=== PATIENT | male | born 1965 | race Caucasian/White ===

== ENCOUNTER 2022-09-26 05:04 | Emergency (ER) | payer OTHER ==
[~2022-09-26] VITALS: Ht 180 cm; Wt 117.0 kg
[2022-09-26 05:19] VITALS: BP 134/89
[2022-09-26] MEDS ORDERED: FAMOTIDINE 20MG/2ML IV (PEPCID) IV STA (05:25)
[2022-09-26] MEDS ORDERED: methylPREDNISolone 125 MG (Solu-MEDROL) VIAL IV STA (05:25)
[2022-09-26] MEDS ORDERED: diphenhydrAMINE 50 MG/ML INJ (BENADRYL) IV STA (05:25)
--- NOTE | 2022-09-26 05:28 | ED General ---
General Chief Complaint: Allergic Reaction Stated Complaint: ALLERGIC RXN Nursing Triage Note: patient reports facial swelling yesterday late afternoon, with hives in face/jaw/ ear and throat tightness "few days" Source of Information: Patient History of Present Illness Date Seen by Provider: Sep 26, 2022 Time Seen by Provider: 05:18 Initial Comments PT ARRIVES VIA POV FROM HOME PT STATES HE THINKS HE IS HAVING AN ALLERGIC REACTION TO SOMETHING HE STATES FOR THE LAST FEW DAYS HIS THROAT HAS FELT A LITTLE TIGHT YESTERDAY AFTERNOON, HE NOTICED THAT HIS FACE WAS SWOLLEN, AND HE BEGAN TO HAVE HIVES ALL OVER HIS FACE, EARS, JAWS--ONLY MILDLY ITCHY NO DIFFICULTY BREATHING OR SWALLOWING NO DIZZINESS OR SYNCOPE NO GI SYMPTOMS NO OTHER PARTS OF BODY ARE AFFECTED HE HAS NOT TAKEN ANYTHING FOR SYMPTOMS PT HAS BEEN HAVING SYMPTOMS OF SINUS INFECTION FOR THE LAST 3 WEEKS HE WENT TO [facility] ON 09/17/22, AND RECEIVED RX'S FOR PREDNISONE, TESSALON, AUGMENTIN, FLONASE. HE FINISHED THESE MEDICATIONS "A FEW DAYS AGO" HE DID NOT HAVE THESE SYMPTOMS WHILE TAKING THE MEDICATIONS. HE HAS NOT HAD SYMPTOMS LIKE THIS BEFORE HE DOES NOT TAKE ANY DAILY MEDICATIONS NO NEW FOODS PT JUST RECENTLY MOVED BACK TO THIS AREA, AND HAS NOT ESTABLISHED WITH LOCAL DR YET HE GREW UP HERE, BUT MOVED AWAY AFTER COLLEGE. Allergies and Home Medications Allergies Coded Allergies: No Known Allergies (Unverified Allergy, Mild, 09/26/22) Patient Home Medication List Home Medication List Reviewed: Yes Famotidine (Pepcid) 40 Mg Tablet, 40 MG PO DAILY Prescribed by: MARAH EDGAR on 09/26/22623 Prednisone (Prednisone) 20 Mg Tab, 40 MG PO DAILY Prescribed by: MARAH EDGAR on 09/26/22623 Review of Systems Review of Systems Constitutional: no symptoms reported; No chills, No diaphoresis, No dizziness, No fever EENTM: see HPI Respiratory: no symptoms reported Cardiovascular: no symptoms reported Gastrointestinal: no symptoms reported Genitourinary: no symptoms reported Musculoskeletal: no symptoms reported Skin: see HPI Psychiatric/Neurological: No Symptoms Reported Hematologic/Lymphatic: No Symptoms Reported Immunological/Allergic: no symptoms reported Past Nnwxiwe-Iytaro-Cgcjpv Hx Patient Social History Tobacco Use?: No Use of E-Cig and/or Vaping dev: No Substance use?: No Alcohol Use?: Yes Alcohol Frequency: Rarely Immunizations Up To Date First/Initial COVID19 Vaccinat: 2020 Second COVID19 Vaccination Terrance: 2020 Third COVID19 Vaccination Date: 2021 Past Medical History Surgery/Hospitalization HX: ortho surgery Surgeries: Yes (BILATERAL BICEPS TENDON RUPTURE REPAIRS) Orthopedic Respiratory: No Cardiac: No Neurological: No Genitourinary: No Gastrointestinal: No Musculoskeletal: Yes (BILATERAL BICEPS TENDON RUPTURES/REPAIRS DUE TO WEIGHTLIFTING) Endocrine: No HEENT: No Cancer: No Physical Exam Vital Signs Vital Signs - First Documented 09/26/22 05:19 Temp 36.2 Pulse 71 Resp 18 B/P (MAP) 134/89 (104) Pulse Ox 97 O2 Delivery Room Air Capillary Refill : Less Than 3 Seconds Height, Weight, BMI Height: '" Weight: lbs. oz. kg; 36.00 BMI Method: General Appearance: No Apparent Distress, WD/WN HEENT: PERRL/EOMI, Pharynx Normal, Other (NO SWELLING OF LIPS OR ORAL MUCOSA OR UVULA OR TONGUE. NORMAL VOICE. NO PROBLEMS HANDLING SECRETIONS. ) Neck: Full Range of Motion, Normal Inspection, Non Tender, Supple Respiratory: Normal Breath Sounds, No Accessory Muscle Use, No Respiratory Distress Cardiovascular: Regular Rate, Rhythm, No Murmur Back: Normal Inspection Extremity: Normal Inspection, No Pedal Edema Neurologic/Psychiatric: Alert, Oriented x3, No Motor/Sensory Deficits, Normal Mood/Affect, cork insulator II-XII Norm as Tested Skin: Normal Color, Warm/Dry, Rash (DIFFUSE ERYTHEMA TO ENTIRE FACE, BILATERAL EARS, WITH SLIGHT SWELLING TO FACE AND EARS, AND PATCHY URTICARIAL WHEALS TO FACE, EARS, NECK. ) Progress/Results/Core Measures Suspected Sepsis SIRS Temperature: Pulse: 71 Respiratory Rate: 18 Blood Pressure 134 /89 Mean: 104 Results/Orders My Orders Orders - MARAH EDGAR DO Ed Iv/Invasive Line Start (09/26/22 05:25) Monitor-Rhythm Ecg Trace Only (09/26/22 05:25) Famotidine Injection (Pepcid Injection) (09/26/22 05:25) Diphenhydramine Injection (Benadryl Inje (09/26/22 05:25) Methylprednisolone Sod Succ (Solu-Medrol (09/26/22 05:25) Vital Signs/I&O 09/26/22 05:19 Temp 36.2 Pulse 71 Resp 18 B/P (MAP) 134/89 (104) Pulse Ox 97 O2 Delivery Room Air Capillary Refill : Less Than 3 Seconds Blood Pressure Mean: 104 Progress Note : Progress Note GIVEN: -BENADRYL -SOLU-MEDROL -PEPCID SYMPTOMS IMPROVING WITH THE ABOVE--SKIN IS MUCH LESS RED, STILL HAS RESIDUAL URTICARIA, SWELLING HAS DECREASED. NOT ITCHING. THROAT NO LONGER FEELS TIGHT. VITALS STABLE DISCUSSED ANTICIPATED COURSE, SYMPTOMATIC TREATMENT, MEDICATIONS, NEED FOR FOLLOW UP AND RETURN PRECAUTIONS NO PRIOR VISITS HERE Departure Impression Primary Impression: ALLERGIC REACTION UNKNOWN CAUSE Disposition: HOME, SELF-CARE Condition: Improved Departure-Patient Inst. Decision time for Depature: 06:22 Referrals: NO,LOCAL PHYSICIAN (PCP/Family) Primary Care Physician Patient Instructions: Allergic Reaction ED Add. Discharge Instructions: LOTS OF LIQUIDS AVOID ANY NEW FOODS, DRINKS OR PRODUCTS BENADRYL 50 MG EVERY 4 HOURS NEEDED FOR RASH OR ITCHING RETURN TO ER IF SYMPTOMS WORSEN All discharge instructions reviewed with patient and/or family. Voiced understanding. Scripts Famotidine (Pepcid) 40 Mg Tablet 40 MG PO DAILY, #10 TAB Prov: MARAH EDGAR DO 09/26/22 Prednisone (Prednisone) 20 Mg Tab 40 MG PO DAILY, #6 TAB 0 Refills Prov: MARAH EDGAR DO 09/26/22 MARAH EDGAR DO Sep 26, 2022 05:28
[2022-09-26] MEDS ORDERED: PRD20T PO (06:24)
[2022-09-26] MEDS ORDERED: FAMO40TA72 PO (06:24)
== END 2022-09-26 06:46 | disposition home or self-care (01) ==
LOC: ER 05:11
DX: L50.0 Allergic urticaria (principal)

== ENCOUNTER 2022-11-23 05:55 | Outpatient (CLI) | payer OTHER ==
[~2022-11-23] VITALS: Ht 180.3 cm; Wt 122.2 kg
[~2022-11-23 05:55] MED LIST: FAMO40TA72 PO; PRD20T PO
[2022-11-23] MEDS ORDERED: DIOS630T PO (09:28)
[2022-11-23] MEDS ORDERED: LACT1CAP62 PO (09:28)
[2022-11-23] MEDS ORDERED: MULT-1136 PO (09:28)
== END 2022-11-23 09:36 | disposition home or self-care (01) ==
LOC: PREOP 05:55
PROVIDERS: ATTEND Surgery
DX: Z01.818 Encounter for other preprocedural examination (principal)

== ENCOUNTER 2022-11-30 12:03 | Day surgery (SDC) | payer OTHER ==
[~2022-11-30] VITALS: Ht 180.3 cm; Wt 122.2 kg
[~2022-11-30 12:03] MED LIST changes: +DIOS630T PO; +LACT1CAP62 PO; +MULT-1136 PO
[2022-11-30] MEDS ORDERED: LACTATED RINGERS 1,000 ML 1,000 ML IV STA (12:06)
[2022-11-30] MEDS ORDERED: LIDOCAINE JELLY 2% 6 ML SYRINGE MM PRN (12:15)
[2022-11-30] MEDS ORDERED: HURRICAINE EXT TUBE (BENZOCAINE) XX PRN (12:15)
[2022-11-30 12:40] VITALS: BP 144/99
--- NOTE | 2022-11-30 13:04 | Progress Note-Pre Operative ---
Pre-Operative Progress Note Date of Available H&P: Nov 30, 2022 Date H&P Reviewed: Nov 30, 2022 Time H&P Reviewed: 13:00 History & Physical: No changes noted Pre-Operative Diagnosis: dysphagia, GERD, hx Darling's MONIE JONES MD Nov 30, 2022 13:04
[2022-11-30] MEDS ORDERED: PANT40TA2 PO (13:05)
--- NOTE | 2022-11-30 13:05 | Discharge Inst-Surgical ---
D/C Lap Instructions-KIDO New, Converted, or Re-Newed RX: RX on Chart Follow Up Activity as tolerated High Fiber Diet 25g or more per day Avoid Alcohol, Caffeine, Spicy [place] and Acid foods. Drink 64 fluid oz or more of fluids per day. Symptoms to Report: Fever over 101 degree F, Nausea/Vomiting If any problems/questions: Contact your physician or go to Emergency Room MONIE JONES MD Nov 30, 2022 13:05
[2022-11-30] MEDS ORDERED: ONDANSETRON 4 MG ORAL DISSOLVE TABLET PO PRN (13:15)
[2022-11-30] MEDS ORDERED: ONDANSETRON INJECTION 4 MG/2 ML (SDV) IVP PRN (13:15)
[2022-11-30] MEDS ORDERED: MIDAZOLAM INJ 2 MG/2 ML VIAL ONE (13:39)
[2022-11-30] MEDS ORDERED: LIDOCAINE JELLY 2% 6 ML SYRINGE ONE (13:43)
[2022-11-30 14:30] VITALS: BP 123/73
[2022-11-30 14:35] VITALS: BP 124/73
--- NOTE | 2022-11-30 14:52 | Anesthesia-General Post-Op ---
MAC Patient Condition Mental Status/LOC: Same as Preop Cardiovascular: Satisfactory Nausea/Vomiting: Absent Respiratory: Satisfactory Pain: Controlled Complications: Absent Post Op Complications Complications None Follow Up Care/Instructions Patient Instructions None needed. Anesthesiology Discharge Order Discharge Order Patient is doing well, no complaints, stable vital signs, no apparent adverse anesthesia problems. No complications reported per nursing. EDWIN MEADE CRNA Nov 30, 2022 14:52
[2022-11-30 15:15] VITALS: BP 126/75
--- NOTE | 2022-11-30 17:49 | Progress Note-Post Operative ---
Post-Operative Progess Note Surgeon (s)/Geological Technician (s) Surgeon MONIE JONES MD Geological Technician: none Pre-Operative Diagnosis dysphagia, GERD, hx Darling's Post-Operative Diagnosis reflux esophagitis(grade C)with clinical Darling's esophagus, small HH(2.5cm), moderate gastritis. Procedure & Operative Findings Date of Procedure 11/30/22 Procedure Performed/Findings EGD with bx. Anesthesia Type mac Estimated Blood Loss Estimated blood loss (mL): minimal Specimens/Packing Specimens Removed ge jxn, antrum MONIE JONES MD Nov 30, 2022 17:49
--- NOTE | 2022-11-30 22:22 | OPERATIVE REPORT ---
DATE OF SERVICE: 11/30/2022 ATTENDING PRIMARY CARE PHYSICIAN: Dr. Marek Carrillo. PREOPERATIVE DIAGNOSES: Gastroesophageal reflux disease, history of Darling's esophagus. POSTOPERATIVE DIAGNOSES: Reflux esophagitis, Deport grade C with clinical Darling's esophagus. Small hiatal hernia approximately 2.5 cm in size, moderate gastritis. PROCEDURE: EGD with biopsy. SURGEON: Monie Jones MD ANESTHESIA: Monitored anesthesia care. ESTIMATED BLOOD LOSS: Minimal. FINDINGS: Reflux esophagitis, Deport grade C with clinical Darling's esophagus. Small hiatal hernia approximately 2.5 cm in size, moderate gastritis. DISPOSITION: The patient tolerated the procedure well. INDICATIONS: The patient is a 57-year-old male referred over to us for surveillance of his Darling's esophagus. He states that he was diagnosed 3 years ago and has had yearly upper endoscopies since that time. He has been found to have Darling's esophagus; however, does not recall any history of identifying any areas of dysplasia within the biopsy specimens. He reports that he also does have some intermittent episodes of reflux with epigastric burning sensation and also does have occasional hoarseness of breath or hoarseness of voice. DESCRIPTION OF PROCEDURE: The patient was brought to the endoscopy suite and laid in the left lateral decubitus position. After adequate IV pain and sedative medications and monitored anesthesia care, the mouthpiece was applied. The endoscope was placed in the mouth, visualizing the pharynx and hypopharyngeal region. Vocal cords, epiglottis and vallecula identified and appeared to be normal. The endoscope was then gently intubated into the esophageal opening and esophagus insufflated. The endoscope was then advanced into the first, second, third portions of esophagus; at the level of the GE junction, a reflux esophagitis, Deport grade C identified. There was also significant cephalization of the gastroesophageal junction consistent with a clinical Darling's esophagus. Biopsies were taken with forceps with visualization of good hemostasis. The endoscope was then advanced into the stomach and endoscope retroflexed, visualizing a small hiatal hernia approximately 2.5 cm in size. There was a moderate severity gastritis. No formal ulcerations, polyps or any neoplasms. A biopsy was taken of the stomach, antrum to rule out H. pylori with visualization of good hemostasis. The endoscope was then advanced through the pylorus and the first and second portion of the duodenum, which appeared normal with no ulcerations or any distal obstructions. The endoscope was then slowly withdrawn while taking a second look and suctioning of residual air with no additional findings. The patient tolerated the procedure well. We will recommend continued medical management, which would encompass a small and more frequent meals, avoiding to eating at night as well as head elevation while lying supine. He also needs to avoid caffeinated beverages, spicy, greasy and acidic foods. We will also start him on Protonix 40 mg daily. Any modality for weight loss and maintenance would also be recommended, which would ultimately decrease reflux. We will recommend a followup EGD in approximately one year. Job ID: [id number] DocumentID: [id number] Dictated Date: 11/30/2022 14:34:43 Eviscerator Date: 11/30/2022 22:20:00 Dictated By: MONIE JONES MD [facility]
== END 2022-11-30 15:15 | disposition home or self-care (01) ==
LOC: ENDO 12:03
PROVIDERS: ATTEND Surgery
DX: K21.00 Gastro-esophageal reflux disease with esophagitis, without bleeding (principal); K22.70 Barrett's esophagus without dysplasia; K29.70 Gastritis, unspecified, without bleeding; K44.9 Diaphragmatic hernia without obstruction or gangrene; K31.89 Other diseases of stomach and duodenum; E66.01 Morbid (severe) obesity due to excess calories; Z68.37 Body mass index [BMI] 37.0-37.9, adult